=== PATIENT | female | born 1980 | race Caucasian/White ===

== ENCOUNTER 2016-09-17 09:44 | Inpatient (IN) | payer MEDICAID ==
[~2016-09-17] VITALS: Ht 157.5 cm; Wt 69.3 kg
[2016-09-17 10:16] VITALS: Ht 157.5 cm; Wt 69.3 kg
[2016-09-17] MEDS ORDERED: PRENAT PO (10:18)
[2016-09-17] MEDS ORDERED: METHYLERGONOVINE 0.2 MG INJ IM PRN (10:30)
[2016-09-17] MEDS ORDERED: CARBOPROST 250 MCG INJ IM PRN (10:30)
[2016-09-17] MEDS ORDERED: OXYTOCIN 30 UNITS/LR 500 ML IV PRN (10:30)
[2016-09-17] MEDS ORDERED: OXYTOCIN 30 UNITS/LR 500 ML IV SCH ×2 (10:30→11:30)
[2016-09-17] MEDS ORDERED: CEFAZOLIN 2 GM/50 ML (PMX) 50 ML IVPB SCH (10:30)
[2016-09-17] MEDS ORDERED: MISOPROSTOL 200 MCG TAB PR PRN ×2 (10:30→14:00)
[2016-09-17 11:12] VITALS: BP 110/63; PULSE 82; RESP 20
[2016-09-17] MEDS: LACTATED RINGER'S 1,000 ML IV SCH ×4 (11:12→22:36)
[2016-09-17 11:29] LABS: INR 0.9; PROTIME 12.1 Sec (12.2-14.2); PT RATIO 0.9
[2016-09-17] MEDS ORDERED: ONDANSETRON 4 MG INJ IV STA (12:13)
[2016-09-17] MEDS ORDERED: CITRIC ACID/NA CITRATE 30 ML CUP PO ONE (12:30)
[2016-09-17 12:53] LABS: BASOPHILS % 0.2 % (0.0-2.0); EOSINOPHILS # 0.1 10^3/ul (0.0-0.5); HEMATOCRIT 37.7 % (37.0-47.0); HEMOGLOBIN 12.8 g/dl (12.0-16.0); LYMPHOCYTES # 1.8 10^3/ul (0.8-2.9); LYMPHOCYTES % 15.5 % (15.0-51.0); MEAN CORPUSCULAR HEMOGLOBIN 27.7 pg (29.0-33.0); MEAN CORPUSCULAR HGB CONC 33.9 g/dl (32.0-37.0); MEAN CORPUSCULAR VOLUME 81.6 fl (82.0-101.0); MEAN PLATELET VOLUME 9.6 fl (7.4-10.4); MONOCYTE # 0.8 10^3/ul (0.3-0.9); MONOCYTES % 7.1 % (0.0-11.0); NEUTROPHILS % 76.2 % (39.0-77.0); PLATELET COUNT 247 10^3/UL (140-440); RED BLOOD COUNT 4.61 10^6/ul (4.20-5.40); RED CELL DISTRIBUTION WIDTH 14.9 % (11.5-14.5); UNCORRECTED WBC 11.8 10^3/ul (4.8-10.8); WHITE BLOOD COUNT 11.8 10^3/ul (4.8-10.8)
[2016-09-17 12:57] LABS: CONDITION 1; LH ANALYZER COMMENTS 1
--- NOTE | 2016-09-17 13:45 | HP ---
Date/Time of Note Date/Time of Note DATE: 09/17/16 TIME: 13:40 OB - History Hx of Present Free Text/Dictation with IUP at 39 weeks and h/o shoulder dystocia who desires to have primary c/s and BTL. she is c/o painful regular UCs and spotting Care: Limited Care Ultrasounds: Other (late sono was normal) Obstetrical Complications: None Medical Complications: None Past Family/Social History * Past Medical, Surgical, Family and Obstetric Histories reviewed from chart. OB Admission Exam Vital Signs Vital Signs Vital Signs Date Time Temp Pulse Resp B/P Pulse Ox O2 Delivery O2 Flow Rate FiO2 09/17/16 11:12 98.3 82 20 110/63 Room Air Physical Exam HEENT: WNL Heart: Rhythm Normal Lungs: Clear, Equal Abdomen: WNL Extremities: Normal Reflexes: Normal Last 72 hours Lab Results CBC & BMP 09/17/16 11:00 OB Assessment/Plan Other Assessment: with IUP at 39 weeks and h/o shoulder dystocia who desires to have primary c/s and BTL. she is c/o painful regular UCs and spotting Other plan: primary c/s and BTL. R/B/I/A d/w pt. informed consent obtained ANT BURTON MD Sep 17, 2016 13:45
[2016-09-17] MEDS ORDERED: LANOLIN 7 GM TUBE TOP PRN (14:00)
[2016-09-17] MEDS ORDERED: NA PHOSPHATE/BIPHOS 133 ML ENEMA PR PRN (14:00)
[2016-09-17] MEDS ORDERED: morphine SULFATE/PF (10 MG/10 ML) INJ ONE (14:07)
--- NOTE | 2016-09-17 14:17 | PREOPHP ---
DATE OF ADMISSION: 09/17/2016 The patient is a 36-year-old 4, para 3, at 39 weeks. Her past OB history is signi ficant for history of traumatic 3 times including damage to baby and shoulder dystocia require ment for forceps delivery. The patient strongly desires to have primary delivery to avoid shoulder dystocia and damage to the baby. She also desires permanent sterilization. I discussed wi th the patient risks, benefits, indications, alternatives of procedure including, but not limited t o risk of infection, bleeding, damage to other organs, bowel, bladder, hernia formation, scar format ion, possibility of blood transfusions, the fact that tubal ligation is permanent and irreversible, but not 100% effective and may fail were all discussed with the patient. She was allowed to ask que stions, all her questions were answered, and informed consent was obtained. PAST MEDICAL HISTORY: None. PAST SURGICAL HISTORY: None. ALLERGIES: NO KNOWN DRUG ALLERGIES. MEDICATIONS: 1. vitamins. 2. Iron. REVIEW OF SYSTEMS: Significant as above. PHYSICAL EXAMINATION: VITAL SIGNS: Stable, afebrile, no acute distress. HEENT: No thyromegaly. HEART: Regular rate and rhythm. LUNGS: Clear to auscultation bilaterally. ABDOMEN: Soft, gravid. EXTREMITIES: No edema. ASSESSMENT: 1. Term . 2. Labor. 3. Patient complains of contractions and spotting. 4. The patient desires primary delivery for history of shoulder dystocia. 5. Desires permanent sterilization. PLAN: Primary delivery and tubal ligation. Informed consent obtained. Dictated By: ANT MILAN/CECI Conf#: [id number] DID#: [id number]
[2016-09-17] MEDS ORDERED: PHENYLephrine (100 MCG/ML) 5ML SYG ONE (14:20)
[2016-09-17] MEDS ORDERED: OXYTOCIN 30 UNITS/LR 500 ML IV ONE (14:20)
[2016-09-17] MEDS ORDERED: EPHEDrine SULFATE 50 MG/5 ML SYG ONE (14:20)
[2016-09-17] MEDS ORDERED: FENTAnyl 50 MCG/ML VIAL ONE ×2 (14:38→14:39)
[2016-09-17] MEDS ORDERED: KETOROLAC 30 MG INJ IV ONE (15:00)
[2016-09-17] MEDS ORDERED: NALOXONE (0.4 MG/ML) INJ IV PRN (15:00)
[2016-09-17] MEDS ORDERED: DIPHENHYDRAMINE 50 MG INJ IV PRN ×2 (15:00)
[2016-09-17] MEDS ORDERED: HYDROmorphONE 1 MG/ML SYG IV PRN ×2 (15:00)
[2016-09-17] MEDS ORDERED: HYDROmorphONE (0.2 MG/ML) 10ML SYG IV PRN ×3 (15:00)
[2016-09-17] MEDS ORDERED: FENTAnyl 50 MCG/ML VIAL IV PRN ×2 (15:00)
[2016-09-17] MEDS ORDERED: MEPERIDINE 25 MG INJ IV PRN (15:00)
[2016-09-17] MEDS ORDERED: ONDANSETRON 4 MG INJ IV PRN ×2 (15:00)
[2016-09-17] MEDS: OXYTOCIN 30 UNITS/LR 500 ML IV SCH ×3 (15:14→18:12)
--- NOTE | 2016-09-17 15:29 | OPR ---
DATE OF OPERATION: 09/17/2016 PREOPERATIVE DIAGNOSES: 1. Term . 2. History of shoulder dystocia. 3. Desires primary low transverse delivery. 4. Desires permanent sterilization. POSTOPERATIVE DIAGNOSES: 1. Term . 2. History of shoulder dystocia. 3. Desires primary low transverse delivery. 4. Desires permanent sterilization. PROCEDURE: Primary low transverse delivery and bilateral salpingectomy. SURGEON: Nazia Rosario MD WIRELESS CONSTRUCTION MANAGER: Dr. Chirinos. ESTIMATED BLOOD LOSS: 700. COMPLICATIONS: None. ANESTHESIA: Spinal. FINDINGS: Normal tubes and ovaries bilaterally, gravid uterus. CONSENT: Please see preop H and P for the consent. PROCEDURE: She was taken to the operating room and spinal anesthesia was induced. She was prepped and draped in the usual sterile fashion. Anesthesia was tested to be adequate. Timeout was done. A knife was used to make a Pfannenstiel skin incision. Incision was taken down in layers. The fasc ia was cut, undermined, from the underlying muscle using sharp and blunt dissection. All the bleeders were cauterized. Peritoneum was entered bluntly. A low transverse incision was develo ped over the uterus and a viable infant was delivered in vertex presentation without any difficulty. The cord was clamped and cut, handed to awaiting team. Placenta was then delivered. Uterus was e xteriorized, wrapped in a moist lap. Inside uterus was cleaned using a dry lap. Uterine incision wa s closed using #1 Monocryl in 2 layers. Extra [id number] sutures using 2-0 Monocryl was placed . All bleeding was stopped from the uterine incision site. At this time 6 cm distal end of the rig ht tube was ligated 3 times using 0 plain ties and then ligated portion was cut and sent to patholog y. Same procedure was done on contralateral side. There was no bleeding. Uterus was inserted back inside abdominal cavity. Irrigation was done. Gutters were cleaned. Uterine incision was evaluat ed. There was no bleeding. Tubal ligation sites bilaterally evaluated. There was no bleeding. Th e peritoneal cavity was explored. There were no surgical instruments or laps left behind. Peritone um was closed using 2-0 Monocryl. Rectus muscles reapproximated using 2-0 Monocryl. Rectus fascia was evaluated. The rectus muscles were evaluated. All bleeders cauterized. Rectus fascia was clos ed using #1 Vicryl, subcutaneous tissue was cleaned, irrigated, all bleeders cauterized and skin reuben sed using Insorb absorbable stapler. All counts correct. Dictated By: NAZIA ROSARIO MD FY/NTS Conf#: [id number] DID#: [id number] CC: ALECIA CHIRINOS MD;*EndCC*
--- NOTE | 2016-09-17 17:21 | OPRPT ---
Intraop Record Datetime Report Generated by CPN: 09/17/2016 17:21 Datetime: 09/17/2016 17:15 Sequential Compression Device: Yes Datetime: 09/17/2016 17:00 Sequential Compression Device: Yes Datetime: 09/17/2016 13:00 OR Number: 3 TIMES/PROCEDURE Arrive OR: 09/17/2016 14:06 Depart OR: 09/17/2016 15:00 Anesthesia Start: 09/17/2016 14:06 Anesthesia End: 09/17/2016 15:05 Surgery Start: 09/17/2016 14:27 Surgery End: 09/17/2016 14:55 Preoperative Dx: PRIMARY C SECTION AND TUBAL LIGATION Surgical Procedure: Section with BTL C/S Decision Time: 09/17/2016 10:30 C/S Decision to Incision (min): 237 Uterine Incision: 09/17/2016 14:27 PERSONNEL Surgeon: Toi Rosario Scrub: Rundgren, Mari Anesthesia Care Provider: Rajendra Kumar Care: See Delivery Summary for Infant Care Providers Others in OR: RN susie dunne, NICU RESP TECH traci brianna Anesthesia Type: Spinal ASA Level: II RISK FOR INJURY Mode of Arrival: Gurney Procedure Time Out: Correct Patient Identity; Correct Side and Site are Marked (if applicable); Acc urate Procedure Consent Form; Agreement on Procedure to be Done; Correct Patient Position; Allergies Reviewed Preoperative Information: Preoperative Checklist Reviewed; Allergies Reviewed; NPO Status Verified RISK FOR ANXIETY/KNOW DEFICIT Emotional Status: Calm/Relaxed Interventions: Provided Education Based on Age and Identified Needs; Communicated Patient Concerns to Appropriate Members of the Health Care Team; Explained Sequence of Events and Perioperative Routi ne; Evaluated Response to Instructions RISK FOR PAIN Pain Teaching: Instructed on Pain Scale Pain Scale: 1.0 Pain Location: ABDOMEN PREOPERATIVE OUTCOMES Preoperative Outcomes: Verbalizes/Indicates Decreased Anxiety, Ability to [place], Understanding of Pr ocedure and Sequence of Events. Questions Answered; Demonstrates Adequate Pain Management; Verbaliz es Comfort Related to Transfer/Transport RISK FOR INFECTION Skin Pre-Operative Site: Intact Clip: Clip Clip Location: SUP PUB Prep: Yes Prep By: Alexus MUNIZ Prep Solution: Chlorohexadine Catheter: Gray Catheter Size: 16 Catheter Inserted By: Alexus MUNIZ refractory furnace designer Wound Class: [id number] Dressing Type: Other Other Dressing Types: 4X4 GAUZE Risk for Impaired Skin Integrity Position in OR: Supine Bony Prominences Protection: Arms Tucked/Padded Positioning Devices: N/A Risk for Hypothermia Warming Interventions: Warm [place](s) Warming Unit Temp Settin.0 Warming Device Number: [id number] Warming [place] Applied by: NO Risk for Injury Safety Straps Applied: Legs Sequential Compression Device: Yes Electrosurgical Unit: Yes Electrosurgical Unit Number: DR3 Bipolar Number: [id number] Ground Pad Location: Right Lateral Thigh Coag Number: 55 Cut Number: 55 Estimated Blood Loss- OR (ml): 700 1st Count Sponge Count: Correct Needle Count: Correct Blade Count: Correct Instrument Count: Correct 2nd Count Sponge Count: Correct Needle Count: Correct Blade Count: Correct Instrument Count: Correct 3rd Count Sponge Count: Correct Needle Count: Correct Blade Count: Correct Instrument Count: Correct Final Count Sponge Count 4: Correct Needle Count 4: Correct Blade Count 4: Correct Instrument Count 4: Correct Surgeon Acknowledged Count: Yes Final Count Resolution: Count Correct Intraoperative Data Equipment: Non-Invasive Blood Pressure; Pulse Oximeter; EKG Blood Products Given: No Implants/Prosthesis Implants/Prosthesis: N/A Grafts: N/A Irrigation Irrigants: Sterile H2O Other Irrigants: NS Irrigation Amount: 2 BOTTLES Specimens Specimens: Yes Specimen Type: Placenta Disposition: L_D Specimen Type: Fallopian Tubes Disposition: PATH Cultures Cultures: N/A X-Ray X-Ray Taken: No Postoperative Skin: Warm Pain Scale: 2 Condition: Awake Temperature: 97.6 Operative Outcomes: Patient's Surgery Performed Using Aseptic Technique and in a Manner to Prevent Cross-Contamination; Skin Remains Smooth, Intact, Non-reddened, Non-irritated, Free of Bruising; Cor e Body Temperature Remains in Expected Range Transfer To: PACU Report Given to: RN (Annotations: Data stored by CPN on behalf of user) Additional Comments: skin intact and no adhesions noted before bovie pad placement, post op no adhe sions and skin in tact with removal of bovie pad Datetime: 09/17/2016 10:17 Drug Allergies/Reactions: No Known Allergy (09/17/2016) Datetime: 09/17/2016 10:07 Latex Allergies/Reactions: No Latex Allergies
--- NOTE | 2016-09-17 17:21 | DELSUM ---
Delivery Summary A-C Datetime Report Generated by CPN: 09/17/2016 17:21 DELIVERY PERSONNEL Trimmer Machine Operator: Badgett, [place] MATERNAL INFORMATION Delivery Anesthesia: Spinal Medications in Delivery: PITOCIN 30UNITS Estimated Blood Loss (ml): 700 Placenta Cultured: No Maternal Complications: Other RN Comments: HX OF SHOLDER DYSTOCIA _ CEPS DELIVERIES THUS ELECTIVE PC/S WITH TUBAL, 36 YRS OLD, GB S positive LABOR SUMMARY EDC: 09/23/2016 00:00 No. Babies in Womb: 1 Attempted: No Labor Anesthesia: None LABOR INFORMATION Reason for Induction: Not Applicable Onset of Labor: 09/17/2016 04:00 Oxytocin: N/A Group B Beta Strep: Positive Group B Beta Strep: Done, Result Unknown Antibiotics # of Doses: 1X Antibiotics Time of Last Dose: PRE OP Steroids Given: None Reason Steroids Not Administered: Not Applicable MEMBRANES Membranes Rupture Method: Artificial Rupture of Membranes: 09/17/2016 14:31 Length of Rupture (hr): 0.02 Amniotic Fluid Color: Clear Amniotic Fluid Amount: Small Amniotic Fluid Odor: Normal STAGES OF LABOR Stage 3 hr: 0 Stage 3 min: 0 Total Time in Labor hr: 10 Total Time in Labor min: 32 CSECTION DELIVERY Primary Indication: Other Other Primary Indication: HX OF SHOULDER DYSTOCIA Secondary Indication: Other Other Secondary Indication: ELECTIVE BY PT CSection Urgency: Elective CSection Incidence: Primary Labor: Labor Elective: Elective CSection Incision: N/A BABY A INFORMATION Delivery Date/Time: 09/17/2016 14:32 Method of Delivery: Born in Route : No : N/A Forceps: N/A Vacuum Extraction: N/A Shoulder Dystocia : N/A SHOULDER DYSTOCIA BABY A Delivery Date/Time: 09/17/2016 14:32 PRESENTATION/POSITION BABY A Presentation: Cephalic Cephalic Presentation: Vertex Vertex Position: Left Occipital Anterior Breech Presentation: N/A PLACENTA INFORMATION BABY A Placenta Delivery Time : 09/17/2016 14:32 Placenta Method of Delivery: Manual Removal Placenta Status: Delivered SCORES BABY A Heart Rate 1 min: >100 bpm Resp Effort 1 min: Good Cry Reflex Irritability 1 min: Cough/Sneeze/Pulls Away Muscle Tone 1 min: Active Motion Color 1 min: Blue/Pale Resuscitation Effort 1 min: Tactile Stimulation; Oxygen SCORE 1 MIN: 8 Heart Rate 5 min: >100 bpm Resp Effort 5 min: Good Cry Reflex Irritability 5 min: Cough/Sneeze/Pulls Away Muscle Tone 5 min: Active Motion Color 5 min: Blue/Pale Resuscitation Effort 5 min: Tactile Stimulation; Oxygen; PPV/NCPAP SCORE 5 MIN: 8 INFORMATION BABY A Gestational Age at Delivery: 39.1 Gestational Status: Full Term- 39- 40.6 Weeks Outcome : Liveborn Condition : Stable Sex: Female IDENTIFICATION/MEDS BABY A ID Band Number: [id number] ID Band Location: Right Leg; Left Arm Sensor Applied: Yes Sensor Number: [id number] Sensor Location : Cord Clamp Vitamin K Given : Not Given Erythromycin Given: Not Given WEIGHT/LENGTH BABY A Birthweight (gm): 3760 Infant Weight (lb): 8 Weight (oz): 5 Infant Length (in): 19.00 Infant Length (cm): 48.26 CORD INFORMATION BABY A No. Cord Vessels: 3 Nuchal Cord : N/A (Annotations: Data stored by N on behalf of user) Cord Blood Taken: Yes Suction: Mouth; Nose
[2016-09-17 18:00] VITALS: BP 113/57; PULSE 83; RESP 83
[2016-09-17] MEDS: IBUPROFEN 600 MG TAB PO SCH ×2 (18:00→23:39)
[2016-09-17 18:15] VITALS: BP 118/56; PULSE 86; RESP 18
[2016-09-17 18:45] VITALS: BP 122/64; PULSE 89; RESP 18
[2016-09-17 19:45] VITALS: BP 118/70; PULSE 79; RESP 18
[2016-09-17] MEDS: SENNA/DOCUSATE NA (8.6MG/50MG) TAB PO SCH (20:26)
[2016-09-17] MEDS: KETOROLAC 30 MG INJ IV PRN (23:24)
[2016-09-18 03:35] VITALS: BP 98/54; PULSE 78; RESP 18
[2016-09-18] MEDS: KETOROLAC 30 MG INJ IV PRN (05:25)
[2016-09-18] MEDS: IBUPROFEN 600 MG TAB PO SCH ×3 (06:00→17:06)
[2016-09-18] MEDS: LACTATED RINGER'S 1,000 ML IV SCH ×3 (06:13→21:35)
[2016-09-18 07:03] LABS: BASOPHILS % 0.1 % (0.0-2.0); EOSINOPHILS # 0.1 10^3/ul (0.0-0.5); EOSINOPHILS % 0.8 % (0.0-7.0); HEMATOCRIT 29.9 % (37.0-47.0); HEMOGLOBIN 10.2 g/dl (12.0-16.0); LYMPHOCYTES # 1.3 10^3/ul (0.8-2.9); LYMPHOCYTES % 10.3 % (15.0-51.0); MEAN CORPUSCULAR HEMOGLOBIN 27.8 pg (29.0-33.0); MEAN CORPUSCULAR HGB CONC 34.1 g/dl (32.0-37.0); MEAN CORPUSCULAR VOLUME 81.4 fl (82.0-101.0); MEAN PLATELET VOLUME 8.7 fl (7.4-10.4); MONOCYTE # 0.8 10^3/ul (0.3-0.9); MONOCYTES % 6.5 % (0.0-11.0); NEUTROPHIL # 10.6 10^3/ul (1.6-7.5); NEUTROPHILS % 82.3 % (39.0-77.0); PLATELET COUNT 191 10^3/UL (140-440); RED BLOOD COUNT 3.67 10^6/ul (4.20-5.40); RED CELL DISTRIBUTION WIDTH 14.8 % (11.5-14.5); UNCORRECTED WBC 12.9 10^3/ul (4.8-10.8); WHITE BLOOD COUNT 12.9 10^3/ul (4.8-10.8)
[2016-09-18 07:04] LABS: CONDITION 1; LH ANALYZER COMMENTS 1
[2016-09-18 08:00] VITALS: BP_SYST 132; BP_SYST 97; BP_DIAS 58; BP_DIAS 80; PULSE 77; RESP 18
[2016-09-18] MEDS: SENNA/DOCUSATE NA (8.6MG/50MG) TAB PO SCH ×2 (09:00→21:19)
[2016-09-18 12:15] VITALS: BP_SYST 131; BP_SYST 98; BP_DIAS 59; BP_DIAS 78; PULSE 78; PULSE 80; RESP 18
--- NOTE | 2016-09-18 12:52 | PN ---
Date/Time of Note Date/Time of Note DATE: 09/18/16 TIME: 12:47 OB Objective Objective Objective Post C Section day 1 Patient is doing well, Ambulatory She is afebrile Abdomen is soft , Fundus is firm Moderate amount of lochia Breasts are soft, Nipples are intact No calf tenderness. Abdominal incision Laboratory Tests Test 09/18/16 05:59 Basophils # 0.010^3/ul Basophils % 0.1% Blood Morphology Comment Eosinophils # 0.110^3/ul Eosinophils % 0.8% Hematocrit 29.9% Hemoglobin 10.2g/dl Lymphocytes # 1.310^3/ul Lymphocytes % 10.3% Mean Corpuscular Hemoglobin 27.8pg Mean Corpuscular Hemoglobin Concent 34.1g/dl Mean Corpuscular Volume 81.4fl Mean Platelet Volume 8.7fl Monocytes # 0.810^3/ul Monocytes % 6.5% Neutrophils # 10.610^3/ul Neutrophils % 82.3% Nucleated Red Blood Cells # 0.010^3/ul Nucleated Red Blood Cells % 0.0/100WBC Platelet Count 01773^3/UL Red Blood Count 3.6710^6/ul Red Cell Distribution Width 14.8% White Blood Count 12.910^3/ul Current Medications Medications (Trade) Dose Ordered Sig/Nikolay Route PRN Reason Start Time Stop Time Status Last Admin Dose Admin Lactated Ringer's 1,000 ml @ 125 mls/hr Q8H IV 09/17/16 10:29 09/17/16 13:41 DC 09/17/16 13:19 Cefazolin Sodium/ Dextrose 50 ml @ 100 mls/hr ONCE IVPB 09/17/16 10:30 Oxytocin/Lactated Ringer's 500 ml @ 125 mls/hr ONCE IV 09/17/16 10:30 09/17/16 13:41 DC Oxytocin/Lactated Ringer's 500 ml @ 0 mls/hr ONCE PRN IV For Hemorrhage Management 09/17/16 10:30 Methylergonovine Maleate (Methergine) 0.2 mg ONCE PRN IM VAGINAL BLEEDING 09/17/16 10:30 Carboprost Tromethamine (Hemabate) 250 mcg ONCE PRN IM VAGINAL BLEEDING 09/17/16 10:30 Misoprostol 1000 mcg 1,000 mcg ONCE PRN OK VAGINAL BLEEDING 09/17/16 10:30 1/6/17 13:41 DC Oxytocin/Lactated Ringer's 500 ml @ 125 mls/hr ONCE -MAY REPEAT X1 IV 09/17/16 11:30 09/17/16 18:12 Oxytocin/Lactated Ringer's 500 ml @ 125 mls/hr ONCE IV 09/17/16 11:30 Citric Acid/ Sodium Citrate (Bicitra) 30 ml ONCE ONCE PO 09/17/16 12:30 09/17/16 12:31 DC 09/17/16 13:19 Ondansetron HCl 4 mg 4 mg ONCE STAT IV 09/17/16 12:13 09/17/16 12:16 DC 09/17/16 13:20 Lactated Ringer's (Lr) 1,000 ml @ 125 mls/hr Q8H IV 09/17/16 13:35 09/18/16 06:13 Oxycodone/ Acetaminophen (Percocet (5/ 325)) 1 tab Q4H PRN PO PAIN LEVEL 4-6 09/17/16 14:00 Oxycodone/ Acetaminophen (Percocet (5/ 325)) 2 tab Q4H PRN PO PAIN LEVEL 7-10 09/17/16 14:00 Ibuprofen (Motrin) 600 mg Q6 PO 09/17/16 18:00 09/18/16 12:27 Simethicone (Mylicon) 160 mg Q8H PRN PO DISTENSION/GAS/BLOATING 09/17/16 14:00 Senna/Docusate Sodium (Senokot-S) 1 tab BID PO 09/17/16 21:00 09/18/16 09:00 Sodium Biphosphate/ Sodium Phosphate (Fleet Enema) 133 ml DAILY PRN OK CONSTIPATION 09/17/16 14:00 Lanolin (Fae-U-Qazbcl) 1 applic BEDSIDE MEDICATION PRN TOP BEDSIDE FOR CYNTHIA TO NIPPLES 09/17/16 14:00 Diphtheria/ Tetanus/Acell Pertussis (Adacel) 0.5 ml ONCE ONCE IM* 09/20/16 09:00 09/20/16 09:01 Measles/Mumps/ Rubella Vaccine Live (Mmr Ii Vaccine) 0.5 ml ONCE ONCE SC* 09/20/16 09:00 09/20/16 09:01 Misoprostol (Cytotec) 1,000 mcg ONCE PRN OK VAGINAL BLEEDING 09/17/16 14:00 Morphine Sulfate (Duramorph) 10 mg STK-MED ONCE .ROUTE 09/17/16 14:07 09/17/16 14:08 DC Ephedrine Sulfate 50 mg 50 mg STK-MED ONCE .ROUTE 09/17/16 14:20 09/17/16 14:21 DC Oxytocin/Lactated Ringer's 500 ml @ ud STK-MED ONCE IV 09/17/16 14:20 09/17/16 14:21 DC Phenylephrine HCl (Arnaldo-Synephrine Inj Syg) 500 mcg STK-MED ONCE .ROUTE 09/17/16 14:20 09/17/16 14:21 DC Fentanyl (Sublimaze) 100 mcg STK-MED ONCE .ROUTE 09/17/16 14:38 09/17/16 14:39 DC Fentanyl (Sublimaze) 100 mcg STK-MED ONCE .ROUTE 09/17/16 14:39 09/17/16 14:40 DC Naloxone HCl (Narcan) 0.1 mg Q2M PRN IV FOR RESP RATE 8 OR LESS 09/17/16 15:00 09/18/16 14:59 Ketorolac Tromethamine (Toradol) 30 mg Q6H PRN IV PAIN 09/17/16 15:00 09/18/16 14:59 09/18/16 05:25 Hydromorphone HCl (Dilaudid) 0.2 mg Q3H PRN IV PAIN LEVEL 1-5 09/17/16 15:00 09/18/16 14:59 Hydromorphone HCl (Dilaudid) 0.4 mg Q3H PRN IV PAIN LEVEL 6-10 09/17/16 15:00 09/18/16 14:59 09/18/16 09:20 Diphenhydramine HCl (Benadryl) 25 mg Q6H PRN IV ITCHING 09/17/16 15:00 09/18/16 14:59 Ondansetron HCl (Zofran Inj) 4 mg Q6H PRN IV NAUSEA AND/OR VOMITING 09/17/16 15:00 09/18/16 14:59 Hydromorphone HCl (Dilaudid (Rec)) 0.2 mg PACU ORDER PRN IV MILD PAIN LEVEL 1-3 09/17/16 15:00 09/17/16 19:00 DC Hydromorphone HCl (Dilaudid (Rec)) 0.4 mg PACU ORDER PRN IV MODERATE PAIN LEVEL 4-6 09/17/16 15:00 09/17/16 19:00 DC Hydromorphone HCl (Dilaudid (Rec)) 0.6 mg PACU ORDER PRN IV SEVERE PAIN LEVEL 7-10 09/17/16 15:00 09/17/16 19:00 DC Fentanyl (Sublimaze) 25 mcg PACU ORDER PRN IV MILD PAIN LEVEL 1-3 09/17/16 15:00 09/17/16 19:00 DC Fentanyl (Sublimaze) 50 mcg PACU ODER PRN IV MODERATE PAIN LEVEL 4-6 09/17/16 15:00 09/17/16 19:00 DC Ketorolac Tromethamine (Toradol) 30 mg PACU ORDER ONCE IV 09/17/16 15:00 09/17/16 15:01 DC 09/17/16 16:53 Ondansetron HCl (Zofran Inj) 4 mg PACU ORDER PRN IV NAUSEA AND/OR VOMITING 09/17/16 15:00 09/17/16 19:00 DC Meperidine HCl (Demerol) 25 mg PACU ORDER PRN IV POST-OP RIGORS 09/17/16 15:00 09/17/16 19:00 DC Diphenhydramine HCl (Benadryl) 25 mg PACU ORDER PRN IV PRURITUS 09/17/16 15:00 09/17/16 19:00 DC Influenza Virus Vaccine (Fluzone) 0.5 ml ONCE ONCE IM* 09/18/16 19:30 09/18/16 19:31 is healing well. Breast feeding the new born. BESSIE GRIMES MD Sep 18, 2016 12:52
[2016-09-18 16:21] VITALS: BP 94/57; PULSE 74; RESP 18
[2016-09-18] MEDS: OXYCODONE/ACETAMINOPHEN (5/325) TAB PO PRN (18:52)
[2016-09-18] MEDS ORDERED: INFLUENZA VIRUS VACCINE 0.5 ML SYG IM* ONE (19:30)
[2016-09-18 20:00] VITALS: BP 107/54; PULSE 82; RESP 18
[2016-09-19] MEDS: IBUPROFEN 600 MG TAB PO SCH ×5 (00:10→23:10)
[2016-09-19 03:50] VITALS: BP 96/64; RESP 16
[2016-09-19] MEDS: OXYCODONE/ACETAMINOPHEN (5/325) TAB PO PRN ×3 (03:55→19:52)
[2016-09-19 08:00] VITALS: BP 101/57; PULSE 68; RESP 18
[2016-09-19] MEDS: SENNA/DOCUSATE NA (8.6MG/50MG) TAB PO SCH ×2 (09:00→21:00)
--- NOTE | 2016-09-19 10:27 | PN ---
Date/Time of Note Date/Time of Note DATE: 09/19/16 TIME: 10:23 OB Subjective Subjective Subjective Pain well controlled with PO pain meds. Reports some discomfort in the incision when she walks. Denies any nausea or vomiting, tolerated regular diet. Passed flatus. had some diarrhea with stool softner, Denies any fever or chills. Breast feeding. Passed flatus OB Objective Objective Objective GA: A&O, NAD Lungs; CTA bilaterally CV: RRR Extremities: no calf tenderness, no click, no edema Hematology - 72 Hrs Test 09/17/16 11:00 09/18/16 05:59 Basophils # 0.010^3/ul (0.0-0.1) 0.010^3/ul (0.0-0.1) Basophils % 0.2% (0.0-2.0) 0.1% (0.0-2.0) Blood Morphology Comment Eosinophils # 0.110^3/ul (0.0-0.5) 0.110^3/ul (0.0-0.5) Eosinophils % 1.0% (0.0-7.0) 0.8% (0.0-7.0) Hematocrit 37.7% (37.0-47.0) 29.9% (37.0-47.0) #L Hemoglobin 12.8g/dl (12.0-16.0) 10.2g/dl (12.0-16.0) #L Lymphocytes # 1.810^3/ul (0.8-2.9) 1.310^3/ul (0.8-2.9) Lymphocytes % 15.5% (15.0-51.0) 10.3% (15.0-51.0) L Mean Corpuscular Hemoglobin 27.7pg (29.0-33.0) L 27.8pg (29.0-33.0) L Mean Corpuscular Hemoglobin Concent 33.9g/dl (32.0-37.0) 34.1g/dl (32.0-37.0) Mean Corpuscular Volume 81.6fl (82.0-101.0) L 81.4fl (82.0-101.0) L Mean Platelet Volume 9.6fl (7.4-10.4) 8.7fl (7.4-10.4) Monocytes # 0.810^3/ul (0.3-0.9) 0.810^3/ul (0.3-0.9) Monocytes % 7.1% (0.0-11.0) 6.5% (0.0-11.0) Neutrophils # 9.010^3/ul (1.6-7.5) H 10.610^3/ul (1.6-7.5) H Neutrophils % 76.2% (39.0-77.0) 82.3% (39.0-77.0) H Nucleated Red Blood Cells # 0.010^3/ul (0.0-0.0) 0.010^3/ul (0.0-0.0) Nucleated Red Blood Cells % 0.0/100WBC (0.0-0.0) 0.0/100WBC (0.0-0.0) Platelet Count 77635^3/UL (140-440) 43875^3/UL (140-440) # Red Blood Count 4.6110^6/ul (4.20-5.40) 3.6710^6/ul (4.20-5.40) #L Red Cell Distribution Width 14.9% (11.5-14.5) H 14.8% (11.5-14.5) H White Blood Count 11.810^3/ul (4.8-10.8) H 12.910^3/ul (4.8-10.8) H OB Assessment/Plan Other Assessment: POD #2 S/p Repeat section and BTL POD #2 Doing well. Diarrhea, likely due to excess stool softer. Continue routine post op care Hold stool softener Possible anticipate DC home tomorrow WALTER WHITTAKER MD Sep 19, 2016 10:27
[2016-09-19 15:42] VITALS: BP 114/60; PULSE 78; RESP 18
[2016-09-19 20:00] VITALS: BP 100/54; PULSE 66; RESP 18
[2016-09-20 04:05] VITALS: BP 104/76; PULSE 63; RESP 17
[2016-09-20] MEDS: IBUPROFEN 600 MG TAB PO SCH ×2 (05:28→11:29)
[2016-09-20 07:45] VITALS: BP 108/71; PULSE 68; RESP 18
--- NOTE | 2016-09-20 08:15 | DS ---
Date/Time of Note Date/Time of Note DATE: 09/20/16 TIME: 08:13 Obstetrical Discharge Record Final Diagnosis Final Diagnosis: Term delivered Vaginal Delivery Obstetrical Delivery: Bilateral Tubal Ligation Section Section: Repeat Complications Augmentation: No Induction: No Rupture of Membranes: No Condition on Discharge Physical Assessment Voiding: Yes Bowel Movement: Yes Breast: Soft, non-tender, Filling Fundus: Firm Abdomen and Incision: soft, appropriate tenderness, incision is clean and intact and no sign of infection Calf Tenderness: No Patient Condition: Good ANT BURTON MD Sep 20, 2016 08:14
[2016-09-20] MEDS ORDERED: DIPHTH/TET/ACEL PERTUSS (ADULT) 0.5 ML VIAL IM* ONE (09:00)
[2016-09-20] MEDS ORDERED: MEASLES,MUMPS,RUBELLA VACCINE INJ SC* ONE (09:00)
[2016-09-20] MEDS: SENNA/DOCUSATE NA (8.6MG/50MG) TAB PO SCH (09:59)
[2016-09-20] MEDS: OXYCODONE/ACETAMINOPHEN (5/325) TAB PO PRN (15:08)
== END 2016-09-20 16:28 | disposition home or self-care (01) | DRG 766 ==
LOC: OBT 09:44 → L-D 09:45 → OBT 10:29 → L-D 10:31 → PP1 17:41
PROVIDERS: ADMIT Specialist; ATTEND Specialist
PROC: 0UT70ZZ Resection of Bilateral Fallopian Tubes, Open Approach (ICD-10-PCS; 2016-09-17)
PROC: 10D00Z1 Extraction of Products of Conception, Low, Open Approach (ICD-10-PCS; principal; 2016-09-17 14:00)
DX: O75.82 Onset (spontaneous) of labor after 37 completed weeks of gestation but before 39 completed weeks gestation, with delivery by (planned) cesarean section (principal); Z37.0 Single live birth; Z3A.39 39 weeks gestation of pregnancy
CPT/HCPCS: 85025; 85610; 85730; 86592; 86850; 86900; 86901; 87340; 88302; 90686; 90715; 94760; 99464; G0463; J0690; J1170; J1885; J2274; J2370; J2405; J2590; J3010; J7120